=== PATIENT | male | born 1995 | race African-American/Black ===

== ENCOUNTER 2016-09-15 16:59 | Emergency (ER) | payer OTHER ==
[~2016-09-15] VITALS: Ht 172.7 cm; Wt 68.0 kg
--- NOTE | ~2016-09-15 | EKG ---
[address] [address] ELECTROCARDIOGRAM REPORT Name: REAL DOMINGUEZ Room #: [facility]#: [id number] Admission: 09/15/16 Attend Phys: Discharge: Date of : [birth year] Report #: [id number] THIS REPORT FOR: //name// [facility] ED Test Date: 2016-09-15 Test Time: 17:15:58 Pat Name: REAL DOMINGUEZ Department: Room: Gender: Straw Hat Presser: estuardo medina : 1995 Requested By: Nhan العلي Order Number: [id number] MD: Jhonathan Alford Measurements Intervals [place] Rate: 63 P: 36 ND: 152 QRS: 59 QRSD: 89 T: 40 QT: 417 QTc: 427 Interpretive Statements Sinus rhythm No previous ECG available for comparison Electronically Signed On 09-15-2016 18:09:05 CDT by Jhonathan Alford [email or web address] <ELECTRONICALLY SIGNED> By: Jhonathan Alford MD 09/15/16 1809 1715 1715 Jhonathan Alford MD /[email or web address]
[2016-09-15 17:58] LABS: ABSOLUTE NEUTROPHILS 1.9 thou/uL (1.4-8.2); BASOPHILS 0.6 % (0.0-2.0); EOSINOPHILS 2.3 % (0.0-3.0); HEMATOCRIT 42.5 % (42.0-52.0); HEMOGLOBIN 14.3 gm/dL (14.0-18.0); MCH 30.5 pg (26.0-34.0); MCHC 33.5 g/dL (28.0-37.0); MONOCYTES 11.6 % (1.0-8.0); PLATELET COUNT 180 thou/uL (150-400); POLYS 46.5 % (36.0-66.0); RBC 4.68 mil/uL (4.50-6.00); RDW 14.5 % (10.5-14.5); WBC 4.1 thou/uL (4.0-11.0)
[2016-09-15 18:00] LABS: MANUAL DIFF NO
[2016-09-15 18:05] LABS: CALCIUM 8.7 mg/dL (8.5-10.1); CREATININE 0.9 mg/dL (0.7-1.3); POTASSIUM 3.5 mmol/L (3.5-5.1)
[2016-09-15 18:10] LABS: ALBUMIN 3.6 g/dL (3.4-5.0); TOTAL BILIRUBIN 0.5 mg/dL (<0.1-1.0); TOTAL PROTEIN 6.6 g/dL (6.4-8.2)
[2016-09-15 18:10] LABS: URINE BILIRUBIN NEGATIVE (Negative); URINE BLOOD TRACE (Negative); URINE COLOR YELLOW; URINE GLUCOSE-RANDOM* NEGATIVE (Negative); URINE KETONES NEGATIVE (Negative); URINE NITRITE POSITIVE (Negative); URINE PROTEIN (DIPSTICK) NEGATIVE (Negative); URINE UROBILINOGEN 0.2 E.U./dl (0.2-1.0)
[2016-09-15 18:18] LABS: SQUAMOUS None Seen /LPF (0-3); URINE WBC 6-15 Few /HPF (0-5)
[2016-09-15 18:19] LABS: BACTERIA >30 Many /HPF (None Seen); CASTS None Seen /LPF (None Seen); CRYSTALS None Seen /LPF (None Seen); URINE RBC 3-10 Few /HPF (0-2)
[2016-09-15 18:57] VITALS: BP 111/70
== END 2016-09-15 18:58 | disposition home or self-care (01) ==
LOC: ER 16:59
PROVIDERS: Physician Assistant
DX: R55 Syncope and collapse (principal); F10.99 Alcohol use, unspecified with unspecified alcohol-induced disorder; F17.210 Nicotine dependence, cigarettes, uncomplicated